=== PATIENT | female | born 1955 | race Caucasian/White ===

== ENCOUNTER → 2021-06-03 08:58 | Outpatient (CLI) | payer MEDICARE, SELFPAY ==
[2021-06-03 18:57] LABS: SARS-CoV-2 RNA PCR Negative
== END ==
PROVIDERS: PCP Internal Medicine; Visit Provider Internal Medicine
DX: Z20.822 Contact with and (suspected) exposure to COVID-19 (principal)
CPT/HCPCS: C9803; U0003; U0005

== ENCOUNTER → 2021-07-13 12:16 | Outpatient (CLI) | payer MEDICARE, SELFPAY ==
--- NOTE | ~2021-07-13 | DEXA_ITS ---
Bone Density Report Name: Nidia Elkins Age: 66 Sex: Female Ethnicity: White Date of : 1955 Indication: postmenopausal; screening for osteoporosis; height loss; prior fracture; asthma or emphysema; hysterectomy; rheumatoid arthritis; Referring Provider: Yolis Butt Study: Bone densitometry was performed. Exam Date: July 13, 2021 Accession number: [id number] Bone Density: Region BMD T-score Z-score Classification AP Spine (L1, L2, L3) 1.196 1.6 3.4 Normal Femoral Neck (Left) 0.902 0.5 2.0 Normal Total Hip (Left) 0.902 -0.3 1.0 Normal Femoral Neck (Right) 0.838 -0.1 1.5 Normal Total Hip (Right) 0.954 0.1 1.4 Normal Total Hip Mean 0.928 -0.1 1.2 Normal World Health Organization criteria for BMD impression classify patients as: Normal (T-score at or above -1.0), Osteopenia (T-score between -1.0 and -2.5), or Osteoporosis (T-score at or below -2.5). 10-year Fracture Risk: FRAX not reported because: All T-scores for Spine Total, Hip Total, Femoral Neck at or above -1.0 Previous Exams: Region Exam Age BMD T-score BMD Change BMD Change Date g/cm2 vs Baseline vs Previous AP Spine(L1, L2, L3) 07/13/2021 66 1.196 1.6 0.022 0.022 08/05/2018 63 1.174 1.4 Total Hip(Left) 07/13/2021 66 0.902 -0.3 -0.006 -0.006 08/05/2018 63 0.908 -0.3 Total Hip(Right) 07/13/2021 66 0.954 0.1 0.010 0.010 08/05/2018 63 0.944 0.0 *Denotes significance at 95% confidence level, LSC for AP Spine = 0.022 g/cm2, LSC for Total Hip = 0.027 g/cm2 Clinical Information Provided by Patient: Has had a low trauma fracture Has rheumatoid arthritis Has the following medical conditions: Asthma or Emphysema, Hysterectomy Patient maximum height was 64 Menopause Age: 45 Does not regularly consume dairy products Drinks caffeinated beverages Onset of menses at age 12 Number of children 2 Impression: The patient has normal bone mass. The patient has risk factors, including: previous fracture. No significant bone loss was observed. Discussion: BONE DENSITY IS ABOVE THE MINIMUM DESIRABLE LEVEL AT ALL SKELETAL SITES TESTED. This patient?s bone mineral density is above the minimum desirable level (T-score -1.0 or better) at all sites measured. The patient should follow a healthful lifestyle (good nutrition with adequate calcium and vitamin D, and appropriate weight-bearing exercise). Follow-Up:
--- NOTE | ~2021-07-13 | US_ITS ---
EXAMINATION: US thyroid DATE: 07/13/2021 13:46 INDICATION: Nontoxic multinodular goiter. TECHNIQUE: Multiple ultrasound images of the thyroid were obtained. COMPARISON: Ultrasound 08/05/2018 FINDINGS: The right thyroid lobe measures 5.8 x 1.7 x 1.7 cm. The left thyroid lobe measures 4.1 x 1.5 x 1.6 c m. In the right thyroid lobe, there is a 5 mm solid, hypoechoic, fapol-sbwj-[id number] nodule with smooth margin without echogenic foci (TI-RADS TR4). In the right thyroid lobe, there is a 7 mm solid, hypoec hoic, pfnry-grjn-ddhu nodule with smooth margin without echogenic foci (TR4). In the right thyroid lo be, there is a 4 mm nodule. IMPRESSION: 1. Small thyroid nodules, likely not clinically significant. No follow-up is needed. Reviewed, dictated and finalized at location A. IMPRESSION: 1. Small thyroid nodules, likely not clinically significant. No follow-up is ne eded.
--- NOTE | ~2021-07-13 | MM_ITS ---
EXAMINATION: MM screening eren BI w krys HISTORY: Screening mammogram TECHNIQUE: Craniocaudal and mediolateral oblique 3-D tomosynthesis images were obtained and synthetic 2-D images were generated. CAD analysis was submitted and interpreted. COMPARISON: 07/10/2017 bilateral digital screening mammogram BREAST PARENCHYMAL COMPOSITION: There are scattered areas of fibroglandular density. FINDINGS: There is no evidence of suspicious mass, calcification, or architectural distortion to sugg est malignancy in either breast. There has been no suspicious interval change. IMPRESSION: 1. No mammographic evidence of malignancy. 2. Recommend routine screening mammography in one year. BI-RADS Category 1: Negative Reviewed, dictated and finalized at location A.
== END ==
PROVIDERS: PCP Internal Medicine; Visit Provider Nurse Practitioner
DX: Z12.31 Encounter for screening mammogram for malignant neoplasm of breast (principal); E04.2 Nontoxic multinodular goiter; Z78.0 Asymptomatic menopausal state
CPT/HCPCS: 76536; 77063; 77067; 77080

== ENCOUNTER → 2021-12-19 11:22 | Outpatient (CLI) | payer MEDICARE, SELFPAY ==
--- NOTE | ~2021-12-19 | XR_ITS ---
XR hip LT min 2V DATE: 12/19/2021 11:44 INDICATION: Left hip pain TECHNIQUE: AP and lateral views COMPARISON: None FINDINGS: There is prominent joint space narrowing at the left hip and mild spurring, consistent with moderately severe left hip osteoarthritis. No fracture or dislocation, avascular necrosis or bone destruction is evident. Normal alignment at th e pubic symphysis and left sacroiliac joint. IMPRESSION: Moderately severe left hip osteoarthritis Reviewed, dictated and finalized at location A.
== END ==
PROVIDERS: PCP Nurse Practitioner; Visit Provider Nurse Practitioner
DX: M16.12 Unilateral primary osteoarthritis, left hip (principal)
CPT/HCPCS: 73502

== ENCOUNTER → 2022-05-26 12:47 | Outpatient (CLI) | payer MEDICARE, SELFPAY ==
--- NOTE | ~2022-05-26 | XR_ITS ---
EXAMINATION: XR hip LT min 2V DATE: 05/26/2022 13:59 INDICATION: Left hip pain. Left lower quadrant abdominal pain. TECHNIQUE: 2 views of left hip were obtained. COMPARISON: Left hip radiographs 12/19/2021 FINDINGS: Bone alignment is normal. No fracture. There is severe lumbar spondylosis. There is severe left hip osteoarthritis. IMPRESSION: 1. Severe left hip osteoarthritis. Reviewed, dictated and finalized at location A.
== END ==
PROVIDERS: PCP Internal Medicine; Visit Provider Internal Medicine
DX: M16.12 Unilateral primary osteoarthritis, left hip (principal)
CPT/HCPCS: 73502

== ENCOUNTER → 2022-11-24 12:11 | Outpatient (CLI) | payer MEDICARE, SELFPAY ==
--- NOTE | ~2022-11-24 | MM_ITS ---
EXAMINATION: MM screening eren BI w krys HISTORY: Screening TECHNIQUE: Craniocaudal and mediolateral oblique 3-D tomosynthesis images were obtained and synthetic 2-D images were generated. CAD analysis was submitted and interpreted. COMPARISON: Comparison to multiple prior studies sequentially, with oldest reviewed study dated 06/24. BREAST PARENCHYMAL COMPOSITION: There are scattered areas of fibroglandular density. FINDINGS: There is no evidence of suspicious mass, calcification, or architectural distortion to sugg est malignancy in either breast. There has been no suspicious interval change. IMPRESSION: 1. No mammographic evidence of malignancy. 2. Recommend routine screening mammography in one year. BI-RADS Category 1: Negative Reviewed, dictated and finalized at location B. TURE STRAIGHTENER
== END ==
PROVIDERS: PCP Internal Medicine; Visit Provider Nurse Practitioner
DX: Z12.31 Encounter for screening mammogram for malignant neoplasm of breast (principal)
CPT/HCPCS: 77063; 77067

== ENCOUNTER → 2023-02-22 13:55 | Outpatient (CLI) | payer MEDICARE, SELFPAY ==
--- NOTE | ~2023-02-22 | XR_ITS ---
EXAMINATION: XR hip LT min 2V DATE: 02/22/2023 14:14 INDICATION: Left hip pain TECHNIQUE: Anteroposterior and frog-leg lateral views of the left hip were obtained. COMPARISON: 05/26/2022 FINDINGS: Bone alignment is normal. No fracture or suspected osteonecrosis. Left hip osteoarthritis with interv al progression of the severe joint space narrowing at the left hip with small marginal osteophytes al jean claude the femoral head and acetabulum. Severe lumbosacral spondylosis. Moderate right-sided and mild le ft-sided sacroiliac osteoarthritis. IMPRESSION: 1. Interval progression of severe left hip osteoarthritis. 2. Unchanged mild left and moderate right sacroiliac osteoarthritis and severe lumbosacral spondylosi s Reviewed, dictated and finalized at location A. IMPRESSION: 1. Interval progression of severe left hip osteoarthritis. 2. Unchanged mild left and moderate right sacroiliac osteoarthritis and severe lumbosacral spondylosis
== END ==
PROVIDERS: PCP Nurse Practitioner; Visit Provider Nurse Practitioner
DX: M16.12 Unilateral primary osteoarthritis, left hip (principal)
CPT/HCPCS: 73502

== ENCOUNTER → 2023-04-05 11:00 | Outpatient (CLI) | payer MEDICARE, SELFPAY ==
--- NOTE | ~2023-04-05 | MR_ITS ---
EXAMINATION: MR hip LT wo con DATE: 04/05/2023 12:15 INDICATION: Left hip pain. Assess for stress fracture. TECHNIQUE: Magnetic resonance imaging (MRI) of the left hip was performed without intravenous contra st. Sequences included full-field axial PD-weighted FS FSE and T1-weighted FSE, coronal of the pelvis with PD-weighted FS FSE, small field of view of the affected hip with axial PD-weighted FS FSE, sag ittal PD-weighted FS FSE and coronal PD weighted FS FSE. Additional radial T1-weighted FGR oriented o rthogonal to the acetabular rim were obtained for evaluation of the labrum. COMPARISON: None FINDINGS: Bones/labrum/cartilage: Alignment is normal. Severe osteoarthritis at the left hip with essentially [id number] apposition w ith underlying subarticular edema-like signal change at the anterosuperior aspect of the femoral head and juxtaposed anterosuperior acetabulum. No fracture, avascular necrosis or pathologic marrow repla cing process. Diffuse degenerative tearing of the left acetabular labrum. Mild osteoarthritis at the contralateral right hip. Severe lumbar spondylosis. Moderate bilateral sacroiliac osteoarthritis. Fluid: Likely reactive small left hip joint effusion. Soft tissues: Normal and symmetric muscle bulk and signal in the pelvis and visualized proximal thighs. The iliopso as, gluteal and proximal hamstring tendons are normal. The uterus is not identified and has likely be en surgically resected. Limited evaluation of visceral organs of the pelvis is otherwise unremarkab le. No pathologically enlarged pelvic/inguinal lymphadenopathy. IMPRESSION: 1. Severe osteoarthritis at the left hip with likely reactive small left hip joint effusion. No fract ure or other acute osseous abnormality. 2. Severe lumbar spondylosis. Reviewed, dictated and finalized at location A. IMPRESSION: 1. Severe osteoarthritis at the left hip with likely reactive small left hip blank int effusion. No fracture or other acute osseous abnormality. 2. Severe lumbar spondylosis.
== END ==
PROVIDERS: PCP Nurse Practitioner; Visit Provider Orthopaedic Surgery
DX: M47.896 Other spondylosis, lumbar region (principal); M16.12 Unilateral primary osteoarthritis, left hip; M25.452 Effusion, left hip
CPT/HCPCS: 73721

== ENCOUNTER 2024-11-05 08:08 | Outpatient (CLI) | payer MEDICARE, SELFPAY ==
--- NOTE | ~2024-11-05 | XR_ITS ---
Right ankle Technique: AP, oblique, and lateral views were obtained. Clinical History: Pain Findings: No acute fracture or dislocation is seen. Possible pes planus. Ankle mortise and other visu alized joint spaces are preserved. There is mild diffuse soft tissue edema. Impression: No acute fracture or dislocation. Possible pes planus, not completely evaluated on ankle radiographs. Reviewed, dictated and finalized at [facility]. R SHOP SUPERINTENDENT Impression: No acute fracture or dislocation. Possible pes planus, not completely evaluated on ankle radiographs.
== END 2024-11-05 08:09 | disposition home or self-care (01) ==
LOC: MICIMG 08:08
PROVIDERS: PCP Family Medicine; Visit Provider Nurse Practitioner Family
DX: M25.571 Pain in right ankle and joints of right foot (principal)
CPT/HCPCS: 73610

== ENCOUNTER 2025-03-18 12:34 | Outpatient (CLI) | payer MEDICARE, SELFPAY ==
--- NOTE | ~2025-03-18 | MR_ITS ---
MRI of the brain Clinical History: Amnesia Technique: Axial and sagittal T1-weighted images were acquired. These were followed by axial T2-weigh kimberly, diffusion weighted, gradient, and FLAIR images. Findings: There is no acute infarct, intracranial hemorrhage, or mass lesion. There are scattered foc al white matter lesions in the periventricular matter, most likely chronic microvascular ischemic elena nge. Ventricles and subarachnoid spaces are mildly dilated. Orbits are unremarkable. Paranasal sinuses and mastoid air cells are clear. Major intracranial flow voids are intact. Sagittal midline structures are intact. IMPRESSION: Mild chronic microvascular ischemic change and mild generalized atrophy. No other significant findings. Reviewed, dictated and finalized at location .
== END 2025-03-18 12:35 | disposition home or self-care (01) ==
LOC: MICIMG 12:34
PROVIDERS: PCP Family Medicine; Visit Provider Family Medicine
DX: R41.3 Other amnesia (principal); R93.0 Abnormal findings on diagnostic imaging of skull and head, not elsewhere classified
CPT/HCPCS: 70551

== ENCOUNTER 2025-08-05 13:53 | Outpatient (CLI) | payer MEDICARE, SELFPAY ==
--- NOTE | ~2025-08-05 | DEXA_ITS ---
Bone Density Report Name: SCOT BURGESS Age: 70 Sex: Female Ethnicity: White Date of : 1955 Indication: postmenopausal; screening for osteoporosis; height loss; asthma or emphysema; hysterectomy; Referring Provider: LORENZO MILIAN Study: Bone densitometry was performed. Exam Date: August 05, 2025 Accession number: [id number] Bone Density: Region BMD T-score Z-score Classification AP Spine(L1, L2, L3) 1.170 1.4 3.4 Normal Femoral Neck (Right) 0.697 -1.4 0.4 Osteopenia Total Hip (Right) 0.849 -0.8 0.7 Normal World Health Organization criteria for BMD impression classify patients as: Normal (T-score at or above -1.0), Osteopenia (T-score between -1.0 and -2.5), or Osteoporosis (T-score at or below -2.5). 10-year Fracture Risk(1): Major Osteoporotic Fracture 7.8% Hip Fracture 0.9% Reported Risk Factors: [place] (), Neck BMD=0.697, BMI=46.9 (1) FRAX(R) Version 3.08. Fracture probability calculated for an untreated patient. Fracture probability may be lower if the patient has received treatment. Previous Exams: -- Region Exam Age BMD T-score BMD Change BMD Change Date g/cm2 vs Baseline vs Previous -- AP Spine (L1-L3) 08/05/2025 70 1.170 1.4 -0.3% -2.1%* 07/13/2021 66 1.196 1.6 1.9% 1.9% 08/05/2018 63 1.174 1.4 Total Hip(Right) 08/05/2025 70 0.849 -0.8 -10.1%* -11.0%* 07/13/2021 66 0.954 0.1 1.0% 1.0% 08/05/2018 63 0.944 0.0 -- *Denotes significance at 95% confidence level, LSC for AP Spine = 0.022 g/cm2, LSC for Total Hip = 0.027 g/cm2 Clinical Information Provided by Patient: Has used the following medications: Vitamin D Has the following medical conditions: Asthma or Emphysema, Hysterectomy Patient maximum height was 64 Menopause Age: 45 No regular weight bearing exercise Drinks caffeinated beverages Onset of menses at age 12 Number of children 2 Impression: The patient has low bone mass, based on the Right Femoral Neck T-score. The patient has an estimated ten-year risk of hip fracture of 0.9% and an estimated ten-year risk of major fracture of 7.8%, based on the WHO FRAX algorithm. The BMD for the AP Spine (L1-L3) decreased, changing by -2.1% since the last DXA exam. The BMD for the Total Hip(Right) decreased, changing by -11.0% since the last DXA exam. Discussion: BONE DENSITY IS LOW AT ONE OR MORE SKELETAL SITES. This patient's lowest T-score is low at one or more skeletal sites. It meets the World Health Organization's (WHO) criteria for ?low bone mass? (T-score between -1.0 and -2.5). The patient's 10-year risk of fracture as calculated by FRAX is less than the threshold where pharmacological therapy is recommended by the National Osteoporosis Foundation (NOF). However, all treatment decisions require clinical judgment and consideration of individual patient factors, including patient preferences, comorbidities, previous drug use, risk factors not captured in the FRAX model (e.g., frailty, falls, vitamin D deficiency, increased bone turnover, interval significant decline in bone density) and possible under or overestimation of fracture risk by FRAX. The patient should follow a healthful lifestyle (good nutrition with adequate calcium and vitamin D, and appropriate weight-bearing exercise). Follow-Up: Consider repeating this study in 2 years to reassess this patient's status, or sooner if there is some new clinical indication. Reported by: ILIANA on 08/06/2025 3:17:00 PM. Reviewed, dictated and finalized at location A.
--- NOTE | ~2025-08-05 | MM_ITS ---
EXAMINATION: MM screening eren BI w krys HISTORY: Screening TECHNIQUE: Craniocaudal and mediolateral oblique 3-D tomosynthesis images were obtained and synthetic 2-D images were generated. CAD analysis was submitted and interpreted. COMPARISON: Comparison to multiple prior studies sequentially, with oldest reviewed study dated 07/10/2017. BREAST PARENCHYMAL COMPOSITION: Not Dense: The breasts are almost entirely fatty. FINDINGS: There is no evidence of suspicious mass, calcification, or architectural distortion to suggest malignancy in either breast. There has been no suspicious interval change. IMPRESSION: 1. No mammographic evidence of malignancy. 2. Recommend routine screening mammography in one year. BI-RADS Category 1: Negative Reviewed, dictated and finalized at location B. ERN WEAVER
== END 2025-08-05 13:54 | disposition home or self-care (01) ==
LOC: MICIMG 13:56
PROVIDERS: PCP Family Medicine; Visit Provider Family Medicine
DX: Z12.31 Encounter for screening mammogram for malignant neoplasm of breast (principal); M85.88 Other specified disorders of bone density and structure, other site; Z78.0 Asymptomatic menopausal state; Z13.820 Encounter for screening for osteoporosis
CPT/HCPCS: 77063; 77067; 77080